=== PATIENT | male | born 1975 ===

== ENCOUNTER 2020-11-30 14:28 | Outpatient (REF) | payer OTHER, SELFPAY ==
[2020-11-30 15:56] LABS: MANUAL DIFF FLAG NO
[2020-11-30 15:59] LABS: Basophils Percent Auto 0.6 % (0-2); Eosinophils Percent Auto 0.8 % (0-4); Hematocrit 41.8 % (42-52); Hemoglobin 13.9 g/dl (14.0-18.0); Imm Gran Abs Auto 0.01 X10*3/uL (0.00-0.03); Imm Gran Pct Auto 0.2 % (0.0-0.4); Lymphocytes Absolute Auto 1.8 X10*3/uL (1.2-4.9); Lymphocytes Percent Auto 36.1 % (20-40); Mean Corpuscular HGB Conc 33.3 g/dl (31.0-36.0); Mean Corpuscular Hemoglobin 30.3 pg (27.0-33.0); Mean Corpuscular Volume 91.1 fL (80-98); Mean Platelet Volume 9.8 fL (9.4-12.4); Monocytes Absolute Auto 0.2 X10*3/uL (0.1-1.2); Monocytes Percent Auto 4.7 % (2-11); Neutrophils Absolute Auto 2.9 X10*3/uL (2.0-8.3); Neutrophils Percent Auto 57.6 % (45-73); Platelet Count 229 X10*3/uL (160-400); Red Blood Count 4.59 X10*6/uL (4.60-5.80); Red Cell Distribution Width 12.4 % (11.0-16.0); White Blood Count 5.1 X10*3/uL (4.8-10.8)
[2020-11-30 16:24] LABS: Alanine Aminotransferase 88 U/L (0-40); Albumin Level 4.3 g/dL (3.5-5.0); Alkaline Phosphatase 107 U/L (39-117); Aspartate Amino Transferase 66 U/L (5-37); Bilirubin Direct 0.2 mg/dL (0.0-0.5); Bilirubin Total 0.5 mg/dL (0.0-1.0); Blood Urea Nitrogen 16 mg/dL (9-16); Estimated Glomerular Filt Rate > 60; Total Protein 7.4 g/dL (6.5-8.0)
[2020-12-01 09:41] LABS: Hepatitis A Antibody IgG REACTIVE (Nonreactive); ~Hepatitis A Antibody IgG 14.66 S/CO (0.00-0.99)
[2020-12-01 11:57] LABS: Alpha Fetoprotein 3.9 ng/mL (<6.1)
[2020-12-01 13:32] LABS: HCV RNA PCR Qn 6.49 Log IU/mL (NOT DETECTED)
[2020-12-04 15:47] LABS: FIB-ALT 78 U/L (9-46); FIB-Alpha-2-Macroglobulin 260 mg/dL (106-279); FIB-Apolipoprotein A1 110 mg/dL (94-176); FIB-GGT 65 U/L (3-95); FIB-Haptoglobin 79 mg/dL (43-212); FIB-Total Bilirubin 0.5 mg/dL (0.2-1.2); Liver Fibrosis Score 0.56; Liver Fibrosis Stage F2; Nec Inflam Act Grade A2; Nec Inflam Act Score 0.56
[2020-12-04 19:41] LABS: HCV Genotype LiPA 1a
== END 2020-11-30 14:29 | disposition home or self-care (01) ==
LOC: HO.LAB 14:28
PROVIDERS: PCP Internal Medicine; Visit Provider Internal Medicine
DX: B18.2 Chronic viral hepatitis C (principal); R94.5 Abnormal results of liver function studies
CPT/HCPCS: 36415; 80076; 81596; 82105; 82565; 84520; 85025; 85610; 86708; 87902

== ENCOUNTER 2021-02-16 14:53 | Outpatient (REF) | payer OTHER, SELFPAY ==
[2021-02-16 15:58] LABS: MANUAL DIFF FLAG NO
[2021-02-16 16:04] LABS: Basophils Percent Auto 0.5 % (0-2); Eosinophils Absolute Auto 0.1 X10*3/uL (0.0-0.4); Eosinophils Percent Auto 2.2 % (0-4); Hematocrit 41.7 % (42-52); Hemoglobin 13.9 g/dl (14.0-18.0); Imm Gran Abs Auto 0.02 X10*3/uL (0.00-0.03); Imm Gran Pct Auto 0.4 % (0.0-0.4); Lymphocytes Absolute Auto 2.2 X10*3/uL (1.2-4.9); Lymphocytes Percent Auto 39.6 % (20-40); Mean Corpuscular HGB Conc 33.3 g/dl (31.0-36.0); Mean Corpuscular Hemoglobin 30.5 pg (27.0-33.0); Mean Corpuscular Volume 91.4 fL (80-98); Mean Platelet Volume 9.5 fL (9.4-12.4); Monocytes Absolute Auto 0.3 X10*3/uL (0.1-1.2); Monocytes Percent Auto 6.2 % (2-11); Neutrophils Absolute Auto 2.8 X10*3/uL (2.0-8.3); Neutrophils Percent Auto 51.1 % (45-73); Platelet Count 236 X10*3/uL (160-400); Red Blood Count 4.56 X10*6/uL (4.60-5.80); Red Cell Distribution Width 12.6 % (11.0-16.0); White Blood Count 5.5 X10*3/uL (4.8-10.8)
[2021-02-16 16:34] LABS: Alanine Aminotransferase 65 U/L (0-40); Albumin Level 4.3 g/dL (3.5-5.0); Alkaline Phosphatase 105 U/L (39-117); Aspartate Amino Transferase 48 U/L (5-37); Bilirubin Direct 0.2 mg/dL (0.0-0.5); Bilirubin Total 0.6 mg/dL (0.0-1.0); Blood Urea Nitrogen 13 mg/dL (9-16); Estimated Glomerular Filt Rate > 60; Total Protein 7.2 g/dL (6.5-8.0)
[2021-02-18 12:46] LABS: HCV Log PCR 6.26 Log IU/mL (NOT DETECTED); HepC Viral Load 1820000 IU/mL (NOT DETECTED)
== END 2021-02-16 14:54 | disposition home or self-care (01) ==
LOC: HO.LAB 14:53
PROVIDERS: PCP Internal Medicine; Visit Provider Internal Medicine
DX: B18.2 Chronic viral hepatitis C (principal); R79.89 Other specified abnormal findings of blood chemistry
CPT/HCPCS: 36415; 80076; 82565; 84520; 85025; 87522

== ENCOUNTER 2021-12-08 08:05 | Outpatient (REF) | payer OTHER, SELFPAY ==
--- NOTE | ~2021-12-08 | US_ITS ---
EXAMINATION: US ABDOMEN COMPLETE CLINICAL INFORMATION: Chronic hepatitis C. COMPARISON: Ultrasound abdomen with elastography 03/17/2020. TECHNIQUE: Real-time imaging of the abdominal viscera. FINDINGS: PANCREAS: Visualized portions of pancreas are normal in appearance. ABDOMINAL AORTA: The proximal, mid, and distal segments are normal in caliber. INFERIOR VENA CAVA: Visualized portions are normal. LIVER: The liver is normal in size. The liver contour is normal. Liver echogenicity is within normal limits. No focal hepatic lesion. There is no intrahepatic biliary duct dilatation seen. GALLBLADDER: Normal. The gallbladder is physiologically distended without evidence of stones, sludge, polyps, wall thickening or pericholecystic fluid. COMMON BILE DUCT: Normal in caliber measuring 0.7 cm in diameter. RIGHT KIDNEY: Normal. No hydronephrosis. No renal calculi or focal parenchymal lesions. The kidney measures 10.6 cm in maximum dimension. LEFT KIDNEY: Normal. No hydronephrosis. No renal calculi or focal parenchymal lesions. The kidney measures 12.3 cm in maximum dimension. SPLEEN: Normal. The spleen measures 11.3 cm in maximum dimension. FREE FLUID: None. US/US abdomen complete IMPRESSION: Unremarkable sonographic imaging of the abdomen.
== END 2021-12-08 08:06 | disposition home or self-care (01) ==
LOC: HO.US 08:05
PROVIDERS: PCP Internal Medicine; Visit Provider Internal Medicine
DX: B18.2 Chronic viral hepatitis C (principal)
CPT/HCPCS: 76700

== ENCOUNTER 2024-02-29 10:20 | Inpatient (IN) | payer OTHER, SELFPAY ==
--- NOTE | ~2024-02-29 | XR_ITS ---
EXAMINATION: XR ELBOW, LEFT CLINICAL INFORMATION: Pain. Concern for osteomyelitis along the medial aspect. COMPARISON: None available. TECHNIQUE: AP, lateral, and oblique views of the left elbow. FINDINGS: Soft tissues are swollen at the elbow with associated subcutaneous edema. IV catheter is present in the antecubital fossa. No fracture or malalignment. Bone mineralization is normal. Joint spaces are well-preserved. No joint effusion. XR/XR elbow LT min 3V IMPRESSION: Soft tissue swelling and subcutaneous edema at the left elbow. No acute osseous findings.
[2024-02-29 11:00] VITALS: BP 121/70; PULSE 103; RESP 16; TEMP 36.9; O2SAT 98; BMI 27.1
--- OUTSIDE RECORDS SUMMARY | 2024-02-29 11:21 | XMS_ITS | Patient Health Record ---
Author Organization [facility] Address [address] [place] [id number] Care Team Providers Care Biodiesel Processing Technician Name Role Phone Alexander Deleon MD Primary Care Provider Jonathana Lino Boggs Unavailable [phone] REASON FOR REFERRAL No Information MEDICATIONS Medication SIG (Take, Route, Fr equency, Duration) Notes Start Date End Date Status Methadone HCl 10 MG/5ML Orally Once a day Active Harvoni 90-400 MG 1 tablet Orally Once a day for 90 days 2021 Active IMMUNIZATIONS Vaccine Route Administration Date Status Comme nts Influenza Unknown 03/11/2020 Refused Influenza Unknown 02/16/2021 Refused SOCIAL HISTORY Tobacco Use: Social History Observation Description Date Details (start date - stop date) Current Smoker NA - NA Sex Assigned At : Social History Observation Description Sex Assigned At Unknown Tobacco Use/Smoking Question Answer Notes Patient is a current smoker How often do you smoke cigarettes? every day How many cigarettes a day do you smoke? 5 or les s How soon after you wake up d o you smoke your first cigarette? after 60 minutes Are you interested in quitting? Thinking about q uitting Alcohol Screen Question Answer Notes Did you have a drink containing alcohol in the p ast year? No Points 0 Interpretation Negative PROBLEMS Problem Type ICD Code Onset Dates Problem Status W/U Status Risk SNOMED Code Notes Problem Chronic hepatitis C without hepatic coma (B18.2) Active confirmed 977071654 Problem Elevated liver function tests (R79.89) Active confirmed 364861806 Problem Chronic hepatitis C (B18.2) Active confirmed Chronic hepatitis C (309231999) PLAN OF TREATMENT Pending Test Test Name Order Date BUN 11/30/2020 BUN 03/11/2020 BUN 02/16/2021 CREATININE 11/30/2020 CREATININE 03/11/2020 CREATININE 02/16/2021 LIVER PROFILE 11/18/2021 LIVER PROFILE 02/16/2021 LIVER PROFILE 03/15/2022 LIVER PROFILE 11/30/2020 LIVER PROFILE 02/16/2021 LIVER PROFILE 03/11/2020 CBC w DIFF 11/18/2021 CBC w DIFF 02/16/2021 CBC w DIFF 03/15/2022 CBC w DIFF 11/30/2020 CBC w DIFF 02/16/2021 CBC w DIFF 03/11/2020 PROTHROMBIN TIME (PT, INR) 11/18/2021 PROTHROMBIN TIME (PT, INR) 11/30/2020 PROTHROMBIN TIME (PT, INR) 03/11/2020 ALPHA-FETOPROTEIN,TUMOR MARKER 1 ALPHA-FETOPROTEIN,TUMOR MARKER 0 ALPHA-FETOPROTEIN,TUMOR MARKER 2 HEPATITIS C VIRAL LOAD 03/15/2022 HEPATITIS C VIRAL LOAD 11/18/2021 HEPATITIS C VIRAL LOAD 02/16/2021 US ABD 11/18/2021 US ABD 03/11/2020 HEPATITIS A ANTIBODY-IGG 11/30/2020 HEPATITIS A ANTIBODY-IGG 03/11/2020 HCV LIVER FIBROSIS, FIBRO TEST 1 HCV LIVER FIBROSIS, FIBRO TEST 0 HCVVL REFLEX GENOTYPE REFLEX NS5A 2020 HCVVL REFLEX GENOTYPE REFLEX NS5A 2019 US abdomen complete 12/08/2021 Insurance Providers Payer Name Payer Address Payer Phone Subscriber Number Group Number Insured Name Patient Relationship to Insured Coverage Start Date Coverage End Date [facility] [address] [address] [place], [place] [id number] PEPPER DURON Self - patient is the insured MEDICAID OF [facility] [address] [place] [address] [phone] [id number] MATEO Dean PEPPER Self - patient is the insured MEDICAL (GENERAL) HISTORY Medical History History ICD Code Denies MD,DM,CVA,Lung disease,renal dise ase HEP C-treated while he was i n group home in 2009 with just pegylated IF--he had a liver biopsy -he describes a cure . Relapsed with IVDA and tested + again in 2015. His hepatitis C viral load was 361,000 in October 2019. In 2016 he had a negative HIV test and positive hepatitis B surface antibody. His HIV test was negative again in October 2019. Genotype is 1A. He is Hep A IgG +. Surgical History Surgery Date(Month/Year) Right knee surgery Appendectomy 1999
--- NOTE | 2024-02-29 11:26 | ED.GENADULT ---
HPI - General Adult General Chief complaint: Wound/Laceration Stated complaint: rash on arms Time Seen by Provider: 02/29/24 11:23 Source: patient Mode of arrival: ambulatory Limitations: no limitations History of Present Illness HPI narrative: Patient is a 49 year old assigned male at with a history of IV drug use presenting to the emergency department today with xylazine wounds. Patient states that he recently got out of rehab and has since noticed that his xylazine wounds are getting worse and possibly infected. Patient states that last heroin use was yesterday, snorting. Patient denies any dizziness, lightheadedness, abdominal pain, nausea, vomiting, fever, chills, blurry vision, double vision, loss of vision, chest pain, difficulty breathing, shortness of breath, back pain, night sweats, pain with urination, increased urinary frequency, increased urinary urgency, blood in his urine or stool, syncope or a near syncopal episode, recent trauma or falls, bowel incontinence, bladder incontinence, bowel retention, bladder retention, or any other complaints at this time. Onset (ago): day(s) Location: left, right and upper extremity Relieving factors: none Exacerbating factors: none Associated symptoms: denies other symptoms Treatments prior to arrival: none Related Data Allergies Allergy/AdvReac Type Severity Reaction Status Date / Time No Known Allergies Allergy Verified 02/29/24 11:02 [No Known Allergies*] Review of Systems Constitutional: Constitutional: Reports no additional constitutional complaints, Denies chills, Denies fever(s) and Denies night sweats Eyes: Eyes: Reports no additional eye complaints, Denies blurry vision, Denies change in vision, Denies diplopia, Denies eye discharge, Denies loss of vision and Denies eye pain ENT: Denies dizziness Cardiovascular: Cardiovascular: Reports no additional cardiovascular complaints, Denies chest pain, Denies lightheadedness, Denies Loss of Consciousness and Denies dyspnea Respiratory: Respiratory: Reports no additional respiratory complaints and Denies dyspnea Gastrointestinal: Gastrointestinal: Reports no additional gastrointestinal complaints, Denies abdominal pain, Denies melena, Denies hematochezia, Denies change in bowel habits and Denies change in stool character Genitourinary: Genitourinary: Reports no additional male genitourinary complaints, Denies hematuria, Denies oliguria, Denies difficulty urinating, Denies dysuria, Denies urinary frequency, Denies urinary hesitancy, Denies urinary incontinence and Denies urinary urgency Musculoskeletal: Musculoskeletal: Reports no additional musculoskeletal complaints, Denies numbness and Denies tingling Integumentary/Breasts: Comments: bilateral arm wounds Neurologic: Denies dizziness, Denies loss of vision, Denies numbness and Denies tingling Psychiatric: Psychiatric: Reports no additional psychiatric complaints Endocrine: Endocrine: Reports no additional endocrine complaints Hematologic/Lymphatic: Hematologic/Lymphatic: Reports no additional hematologic/lymphatic complaints Allergic/Immunologic: Allergic/Immunologic: Reports no additional allergic/immunologic complaints [facility] Past Medical History Attestation statement: The following information was validated with the patient. Source: old records reviewed and nursing notes reviewed Medical History IVDU (intravenous drug user) Opioid use disorder Hepatitis C Social History Social History Smoked in Last 30 Days: No Use of substances other than those prescribed or required for medical reasons: Yes Substance Use Type: Heroin Last Used Substance: Days (ago) Any prior treatment program specific to substance use: Yes Advance Directives: No Advance Directives Information Provided: No Physical Exam ED Vital Signs: Vital Signs - 24 hr 02/29/24 11:00 02/29/24 13:02 02/29/24 13:59 Temperature 98.4 F 97.9 F Pulse Rate 103 H 76 62 Respiratory Rate 16 16 12 Blood Pressure 121/70 109/60 95/59 L Pulse Oximetry 98 97 98 Oxygen Delivery Method Room Air Room Air Room Air BMI result Body Mass Index 27.1 Const General: cooperative, no acute distress, alert and awake Nutritional Appearance: well nourished Orientation/consciousness: patient oriented x3 Limitations: no limitations HENMT Head: Yes normal to inspection and Yes atraumatic Ears: hearing grossly normal bilaterally and external ears normal General nose exam: Normal external nose present, no nasal discharge noted and no epistaxis Face and sinus: Yes normal facial exam, No abrasion and No laceration Mouth: Normal oral and palatal mucosa present, no drooling and no muffled voice Eyes General: appearance normal, both eyes and all related structures Periorbital: periorbital findings normal Eyelids: Yes eyelids normal Conjunctivae: conjunctivae normal Pupils: Equal, round and reactive pupils present EOM: EOMs intact bilaterally Neck Neck: Yes normal visual inspection, Yes full ROM and Yes no lymphadenopathy Chest Chest palpation & inspection: normal inspection of the chest Resp Effort & Inspection: normal respiratory effort and able to speak in complete sentences GI Inspection: Yes normal to inspection Neuro General: patient oriented x3 and moves all extremities Cranial nerves: Yes Equal, round and reactive pupils present Cognition (Neuro): normal cognition Motor exam (neuro): 5/5 motor strength present throughout Sensory Exam: Normal double simultaneous stimulation for sensation Coordination: [id number] test normal Extrem Other: General: Yes full ROM and Yes capillary refill normal Psych Appearance: grossly normal Mental Status: mental status grossly normal Affect: normal affect Attitude: cooperative Thought process: Normal thought process present Thought content: Normal thought content present Insight: Good insight present (Psych) Medications Administered Generic Name Dose Route Start Last Admin Trade Name Freq PRN Reason Stop Dose Admin Enoxaparin Sodium 40 mg 02/29/24 15:15 02/29/24 17:16 Enoxaparin Sodium 40 Mg/0.4 Ml Syringe SUBCUT Not Given Q24H FAVIO Lactated Ringer's 1,000 mls @ 100 mls/hr 02/29/24 20:00 02/29/24 19:59 Lr IVCONT 03/01/24 05:59 100 mls/hr .Q10H FAVIO Administration Sodium Chloride 3 ml 02/29/24 16:00 02/29/24 17:10 0.9 % Sodium Chloride Flush 3 Ml Syringe IVFLUSH 3 ml QSHIFT FAVIO Administration Discontinued Medications Generic Name Dose Route Start Last Admin Trade Name Freq PRN Reason Stop Dose Admin Piperacillin Sod/Tazobactam 100 mls @ 200 mls/hr 02/29/24 11:26 02/29/24 13:32 Sod 4.5 gm/ Sodium Chloride IV 02/29/24 11:55 Infused ONCE ONE Infusion Vancomycin HCl 2,000 mg in 500 mls @ 250 mls/hr 02/29/24 11:45 02/29/24 16:25 Vancomycin/Ns IV 02/29/24 13:44 Infused ONCE ONE Infusion Sodium Chloride 1,000 mls @ 999 mls/hr 02/29/24 14:15 02/29/24 15:15 Ns IV 02/29/24 15:15 Infused .Q1H1M FAVIO Infusion Methadone HCl 30 mg 02/29/24 14:59 02/29/24 17:10 Methadone Hcl 20 Mg/2 Ml Oral.Conc PO 02/29/24 15:00 Not Given ONCE ONE Medical Decision Making Medical Decision Making [facility] Narrative: Patient is a 49 year old assigned male at with a history of IV drug use presenting to the emergency department today with bilateral upper extremity Xalyzine wounds. Patient's physical exam was as noted in the physical exam portion of this note. Patient's blood work showed an initially elevated lactic acid of 2.1 and CRP of 1.32. Rest of the patient's labs were unremarkable. Patient's left elbow x-ray showed no evidence of osteo. Patient's clinical presentation is not consistent with sepsis (@1314). I spoke to the hospitalist team who agreed to admission. Patient was given IV Zosyn and vancomycin. I explained my physical exam findings as well as all test results to the patient. I answered all questions asked by the patient. Patient verbalized agreement and understanding with this treatment plan and admission. Differential Diagnosis Differential Diagnoses: The differential diagnosis associated with the presentation includes Cellultis IV drug use Admission/Observation Consideration of admission/observation: Escalation of care including admission/observation considered Patient admitted. Consult Healthcare Provider Management of the patient was discussed with: Hospitalist (agreed to admission) Lab Data [facility] Lab Attestation statement: I reviewed the patient's lab results. My interpretation of these results are in the MDM Rationale portion of this note. 02/29/24 11:56 02/29/24 11:56 Labs: Lab Results 02/29/24 Range/Units 11:56 WBC 8.1 (4.8-10.8) X10*3/uL RBC 4.50 L (4.60-5.80) X10*6/uL Hgb 11.7 L (14.0-18.0) g/dl Hct 37.0 L (42.0-52.0) % MCV 82.2 (80.0-98.0) fL MCH 26.0 L (27.0-33.0) pg MCHC 31.6 (31.0-36.0) g/dl RDW 14.6 (11.0-16.0) % Plt Count 283 (160-400) X10*3/uL MPV 9.3 L (9.4-12.4) fL Immature Gran % (Auto) 0.2 (0.0-0.4) % Neut % (Auto) 72.1 (45-73) % Lymph % (Auto) 21.9 (20-40) % [place] % (Auto) 5.2 (2-11) % Eos % (Auto) 0.2 (0-4) % Baso % (Auto) 0.4 (0-2) % Lymph # (Auto) 1.8 (1.2-4.9) X10*3/uL [place] # (Auto) 0.4 (0.1-1.2) X10*3/uL Eos # (Auto) 0.0 (0.0-0.4) X10*3/uL Baso # (Auto) 0.0 (0.0-0.2) X10*3/uL Abs Immat Gran (auto) 0.02 (0.00-0.03) X10*3/uL Absolute Neuts (auto) 5.8 (2.0-8.3) x10*3/uL Absolute Nucleated RBC 0.000 (0.0-0.012) X10*3/uL Nucleated RBC % (auto) 0.0 (0.0-0.2) /100WBC ESR 14 (0-15) MM/HR Sodium 137 (135-145) mmol/L Potassium 3.5 (3.3-5.1) mmol/L Chloride 105 (96-108) mmol/L Carbon Dioxide 22 (22-29) mmol/L Anion Gap 14 (12-20) BUN 17 H (9-16) mg/dL Creatinine 0.79 (0.5-1.4) mg/dL Estim Creat Clear Calc 99.8 Estimated GFR > 60 Random Glucose 100 (60-115) mg/dL Lactic Acid 2.1 H* (0.5-2.0) mmol/L Calcium 8.9 (8.4-10.2) mg/dL Total Bilirubin 0.5 (0.0-1.0) mg/dL AST 57 H (5-37) U/L ALT 61 H (0-40) U/L Alkaline Phosphatase 108 (39-117) U/L C-Reactive Protein 1.32 H (< or = 0.50) mg/dL Total Protein 8.0 (6.5-8.0) g/dL Albumin 4.0 (3.5-5.0) g/dL Independent Interpretation I performed an independent interpretation of an: Plain X-Ray Interpretation: My interpretation is in agreement with the radiologist's impression of this imaging study. EXAMINATION: XR ELBOW, LEFT CLINICAL INFORMATION: Pain. Concern for osteomyelitis along the medial aspect. COMPARISON: None available. TECHNIQUE: AP, lateral, and oblique views of the left elbow. FINDINGS: Soft tissues are swollen at the elbow with associated subcutaneous edema. IV catheter is present in the antecubital fossa. No fracture or malalignment. Bone mineralization is normal. Joint spaces are well-preserved. No joint effusion. XR/XR elbow LT min 3V IMPRESSION: Soft tissue swelling and subcutaneous edema at the left elbow. No acute osseous findings. Dictated By: Des De Los Santos MD Signed By: Electronically signed by Des De Los Santos MD 02/29/24 2282 Radiology Impression Discussion of test interpretation with radiology: I have reviewed the radiologist's reading. Critical Care Time Critical Care Time Critical Care Time: Yes Total Critical Care Time: 132 Attestation: I spent 132 minutes of Critical Care Time with this patient. This does not include time spent on separately reported billable procedures. Discharge Plan Discharge Clinical Impression: Cellulitis of upper extremity Patient Disposition: Admitted As Inpatient
[2024-02-29 12:02] LABS: MANUAL DIFF FLAG NO
[2024-02-29 12:03] LABS: Basophils Percent Auto 0.4 % (0-2); Eosinophils Percent Auto 0.2 % (0-4); Hemoglobin 11.7 g/dl (14.0-18.0); Imm Gran Abs Auto 0.02 X10*3/uL (0.00-0.03); Imm Gran Pct Auto 0.2 % (0.0-0.4); Lymphocytes Absolute Auto 1.8 X10*3/uL (1.2-4.9); Lymphocytes Percent Auto 21.9 % (20-40); Mean Corpuscular HGB Conc 31.6 g/dl (31.0-36.0); Mean Corpuscular Volume 82.2 fL (80.0-98.0); Mean Platelet Volume 9.3 fL (9.4-12.4); Monocytes Absolute Auto 0.4 X10*3/uL (0.1-1.2); Monocytes Percent Auto 5.2 % (2-11); Neutrophils Absolute Auto 5.8 x10*3/uL (2.0-8.3); Neutrophils Percent Auto 72.1 % (45-73); Platelet Count 283 X10*3/uL (160-400); Red Cell Distribution Width 14.6 % (11.0-16.0); White Blood Count 8.1 X10*3/uL (4.8-10.8)
[2024-02-29 12:22] LABS: Alanine Aminotransferase 61 U/L (0-40); Alkaline Phosphatase 108 U/L (39-117); Anion Gap 14 (12-20); Aspartate Amino Transferase 57 U/L (5-37); Bilirubin Total 0.5 mg/dL (0.0-1.0); Blood Urea Nitrogen 17 mg/dL (9-16); C Reactive Protein 1.32 mg/dL (< or = 0.50); Calcium 8.9 mg/dL (8.4-10.2); Carbon Dioxide 22 mmol/L (22-29); Chloride 105 mmol/L (96-108); Creatinine Clr Calc Pharmacy 99.8; Estimated Glomerular Filt Rate > 60; Glucose Random 100 mg/dL (60-115); Potassium 3.5 mmol/L (3.3-5.1); Sodium 137 mmol/L (135-145)
[2024-02-29 12:25] LABS: Lactic Acid 2.1 mmol/L (0.5-2.0)
[2024-02-29 12:42] LABS: Erythrocyte Sedimentation Rate 14 MM/HR (0-15)
[2024-02-29 13:02] VITALS: BP 109/60; PULSE 76; RESP 16; TEMP 36.6; O2SAT 97
[2024-02-29] MEDS: Piperacillin Sodium/Tazobactam 4.5 GM in 0.9 % Sodium Chloride 100 ML IV (13:02)
--- NOTE | 2024-02-29 13:38 | PHA.MEDREC ---
Pharmacy Consult ? Medication Reconciliation Pharmacy has completed the medication reconciliation. Spoke with patient, confirmed he is not on any medications.
[2024-02-29] MEDS: vancomycin/NS 2,000 MG/500 ML PLAST..BAG 250 MG IV (13:55)
[2024-02-29 13:59] VITALS: BP 95/59; PULSE 62; RESP 12; O2SAT 98
[2024-02-29 14:00] LABS: Reflex Lactate? Lactic Acid Added
[2024-02-29] MEDS: 0.9 % Sodium Chloride 1,000 ML 999 ML IV (14:10)
--- NOTE | 2024-02-29 14:11 | PC.NURSE ---
security to bedside to check patients belongings w/ pt consent
--- NOTE | 2024-02-29 14:39 | PM.IMHP ---
History of Present Illness Date of Service: 02/29/24 Attending physician on admission: Logan Raphael Chief Complaint: Worsening arm wounds Pt is a 49-year-old male with a PMH significant for?IVDU and hepatitis-C who presents to the ED for evaluation of worsening bilateral upper extremity wounds. Pt patient has history of IVDU with heroin, last injected 9 days ago right before he went into detox for 6 days. Was discharged from detox 2 days ago. Denies recent IVDU, but admits to snorting what he believes was heroin earlier this morning. Reports upper extremity wounds have been around for a few weeks, likely secondary to xylazine. Initially started out as blisters that popped and expressed clear, watery discharge. Does reports some foul-smelling and yellowish discharge approximately 1 week ago. While in detox patient has been picking at in itching scabs. Patient staying with sister who noticed wounds on his arms and had him come to the ED for further evaluation. Denies any other acute symptoms. No fever, chills, nausea, vomiting, abdominal pain. Denies any significant upper extremity pain. No chest pain/pressure, palpitations. Shortness of breath. Denies any lesions elsewhere on his body. Reports injecting into his hands bilaterally. Also states he has been on methadone in the past, but that was some time ago and does not know the dosage. Initially contracted hep C in 2006 and was treated, though be contracted hep C more recently and has not yet sought outpatient treatment. In the ED pt was tachycardia of 103, and soft BP as low as 95/59. Vitals otherwise WNL. Labs were significant for H&H 11.7/37.0, lactic acid 2.1, AST 57, ALT 61, and C-reactive protein 1.32. No significant electrolyte abnormalities. No leukocytosis. ESR WNL. X-ray of left elbow found soft tissue swelling and subcutaneous edema with no acute osseous findings. Pt was treated with IVF, vanc, and Zosyn. Pt will be admitted to the hospital for treatment and further evaluation of upper left extremity cellulitis. Review of Systems Review of Systems: Worsening upper extremity wounds bilaterally Pruritus Previous foul-smelling and purulent discharge Denies fever, chills, nausea, vomiting, abdominal pain No shortness a breath Denies chest pain/pressure, palpitations [facility] Medical History (Updated 02/29/24 @ 15:25 by RONEY Boyle) IVDU (intravenous drug user) Opioid use disorder Hepatitis C Social History Smoked in Last 30 Days: No Use of substances other than those prescribed or required for medical reasons: Yes Substance Use Type: Heroin Last Used Substance: Days (ago) Any prior treatment program specific to substance use: Yes Advance Directives: No Advance Directives Information Provided: No Meds Allergies Allergy/AdvReac Type Severity Reaction Status Date / Time No Known Allergies Allergy Verified 02/29/24 11:02 [No Known Allergies*] Active Medications: Current Medications Sodium Chloride (Ns) 1,000 mls @ 999 mls/hr IV .Q1H1M FAVIO Stop: 02/29/24 15:15 Last Admin: 02/29/24 14:10 Dose: 999 mls/hr Physical Exam Vital Signs and Narrative: Vital Signs: Last Vital Signs Temp 97.9 F 02/29/24 13:02 Pulse 62 02/29/24 13:59 Resp 12 02/29/24 13:59 BP 95/59 L 02/29/24 13:59 Pulse Ox 98 02/29/24 13:59 O2 Del Method Room Air 02/29/24 13:59 BMI result Body Mass Index 27.1 General: AOx3, restless, no acute distress Resp: CTA bilaterally CVS: S1, S2, RRR GI: +BS, NT, no distention Skin: Warm, dry Neuro: Cranial nerves II-XII grossly intact bilaterally. Motor grossly intact bilaterally Extremities: No edema. Multiple ulcerations in various stations of healing with surrounding warmth and erythema on upper extremities bilaterally. No discharge noted. As pictured below Psych: Appropriate affect Results Labs 02/29/24 11:56 02/29/24 11:56 Labs: Laboratory Results - last 24 hr 02/29/24 11:56 MCV 82.2 MCH 26.0 L MCHC 31.6 RDW 14.6 Plt Count 283 MPV 9.3 L Immature Gran % (Auto) 0.2 Neut % (Auto) 72.1 Lymph % (Auto) 21.9 [place] % (Auto) 5.2 Eos % (Auto) 0.2 Baso % (Auto) 0.4 Lymph # (Auto) 1.8 [place] # (Auto) 0.4 Eos # (Auto) 0.0 Baso # (Auto) 0.0 Abs Immat Gran (auto) 0.02 Absolute Neuts (auto) 5.8 Absolute Nucleated RBC 0.000 Nucleated RBC % (auto) 0.0 ESR 14 Anion Gap 14 Estim Creat Clear Calc 99.8 Estimated GFR > 60 Random Glucose 100 Lactic Acid 2.1 H* Calcium 8.9 Total Bilirubin 0.5 AST 57 H ALT 61 H Alkaline Phosphatase 108 C-Reactive Protein 1.32 H Total Protein 8.0 Albumin 4.0 Imaging Radiologist's Impressions: Impressions Elbow X-Ray 02/29/24 12:54 IMPRESSION: Soft tissue swelling and subcutaneous edema at the left elbow. No acute osseous findings. Assessment and Plan (1) Cellulitis of upper extremity: Status: Acute Plan Pt is a 49-year-old male with a PMH significant for?IVDU and hepatitis-C who presents to the ED for evaluation of worsening bilateral upper extremity wounds. Pt will be admitted to the hospital for treatment and further evaluation of upper left extremity cellulitis. Upper extremity cellulitis with ulceration bilaterally Likely secondary to IVDU with xyalazine Patient does not meet sepsis criteria: Tachycardia, but no tachypnea, fever, or leukocytosis; lactic acid WNL Patient received IVF and started on broad-spectrum antibiotics in the ED Will treat with vancomycin and Zosyn, started 02/29/2024 ID consult General surgery consult for possible debridement Opioid use disorder with IVDU Got out of rehab 2 days ago after a 6 day detox stay Last injected 8-9 days ago, last snorted this morning Will give methadone 30mg x1 dose Addiction medicine consult Hepatitis C Reports initially treated successfully in 2006 Has not sought treatment after reinfection Follow-up outpatient for treatment Full Code Attending:?Dr. Raphael DVT Prophylaxis: Lovenox Pt will require a hospitalization of at least two nights for treatment of?worsening bilateral upper extremity cellulitis and ulcerations. Patient will require hospitalization for administration of IV antibiotics and specialist consultation with both Infectious Disease and general surgery for possible debridement. Quality Stroke Does the patient have a stroke diagnosis?: No VTE Prior VTE?: No VTE Risk Level:: Medical - moderate - high VTE Device Contraindication: Treatment Not Indicated VTE Drug Contraindication: N/A - Med Ordered
--- NOTE | 2024-02-29 15:27 | PHA.PROG ---
Admission Date/Time: Indication: skin and skin structure Weight in k.1 kg Adjusted body weight in Kg: [place] body weight in Kg: Obesity Dosing Indication % IBW: BMI 27.1 Serum Creatinine - Last 168 Hours 02/29/24 11:56 Creatinine 0.79 Estimated CrCl and GFR - Last 168 Hours 02/29/24 11:56 Estim Creat Clear Calc 99.8 Estimated GFR > 60 Vancomycin Loading Dose: 2000 X1 Current Vancomycin Dosing Regimen: 750 mg Q8H Vancomycin Monitoring using AUC goal of 400 - 600 range with trough as surrogate marker: 499 Date and Time for next Vancomycin Level to be drawn: 16.6 Pharmacist Comments on Vancomycin Plan: trough to be drawn 03/01 @1999 Vancomycin dosing will take advantage of [employer] as a clinical decision support tool that uses Bayesian modeling to calculate individual patient's pharmacokinetic parameters and forecast the patient's drug concentration time course with the target goal AUC 24 range of 400 - 600 mg/L/hr.
[2024-02-29 15:54] LABS: ~Lactic Acid-LAB USE ONLY 1.1 mmol/L (0.5-2.0)
--- NOTE | 2024-02-29 16:41 | P.CNID_ITS ---
History of Present Illness Data of Consult Service Date: 02/29/24 Requesting physician: Felecia Boswell Primary Care Provider: Unknown Physician HPI Reason for consult: cellulitis concern He presents with discomfort arms in antecubital area after injecting heroin. He has no fever or chills but feels left arm swelling and redness for last three days. He has Hepatitis C. Review of Systems 2 Review of Systems: Yes all other systems are reviewed and are negative PMFSH Past Medical History Medical History IVDU (intravenous drug user) Opioid use disorder Hepatitis C Family History Family history: reviewed and not pertinent Social History Social History Smoked in Last 30 Days: No Use of substances other than those prescribed or required for medical reasons: Yes Substance Use Type: Heroin Last Used Substance: Days (ago) Any prior treatment program specific to substance use: Yes Advance Directives: No Advance Directives Information Provided: No Meds Allergies Allergy/AdvReac Type Severity Reaction Status Date / Time No Known Allergies Allergy Verified 02/29/24 11:02 [No Known Allergies*] Active Medications: Current Medications Acetaminophen (Acetaminophen 325 Mg Tablet) 650 mg PO Q6H PRN PRN Reason: Pain, Mild (Pain Scale 1-3) Benzonatate (Benzonatate 100 Mg Capsule) 100 mg PO TID PRN PRN Reason: Cough Docusate Sodium (Docusate Sodium 100 Mg Capsule) 100 mg PO DAILY PRN PRN Reason: Constipation Enoxaparin Sodium (Enoxaparin Sodium 40 Mg/0.4 Ml Syringe) 40 mg SUBCUT Q24H [facility] Piperacillin Sod/Tazobactam (Sod 3.375 gm/ Sodium Chloride) 50 mls @ 100 mls/hr IV Q6H [facility] Vancomycin HCl 750 mg/ Sodium (Chloride) 265 mls @ 265 mls/hr IV Q8H [facility] Melatonin (Melatonin 3 Mg Tablet) 6 mg PO BEDTIME PRN PRN Reason: Insomnia Ondansetron HCl (Ondansetron Hcl 4 Mg/2 Ml Vial) 4 mg IVPUSH Q8H PRN PRN Reason: Nausea and Vomiting Pharmacy Consult (Consult Rx Vancomycin Dosing) 1 each MISCELLANE DAILY PRN PRN Reason: Consult order Sodium Chloride (0.9 % Sodium Chloride Flush 3 Ml Syringe) 3 ml IVFLUSH QSHIFT [facility] Physical Exam 2 Vital Signs: Vital Signs: Last Vital Signs Temp 97.9 F 02/29/24 13:02 Pulse 62 02/29/24 13:59 Resp 12 02/29/24 13:59 BP 95/59 L 02/29/24 13:59 Pulse Ox 98 02/29/24 13:59 O2 Del Method Room Air 02/29/24 13:59 BMI result Body Mass Index 27.1 Const: General: cooperative HEENT: Head: Yes normal to inspection Face and sinus: Yes normal facial exam Mouth: Normal oral and palatal mucosa present Teeth and gingiva: d entition normal Eyes: General: appearance normal, both eyes and all related structures P upils: Equal, round and reactive pupils present Resp: Effort & Inspection: normal respiratory effort Cardio: Rate: regular rate Rhythm: regular rhythm GI: Palpation (GI): Soft to palpation and nontender : General: Yes no CVA tenderness Back/Spine/Pelvis: Back: no CVA tenderness Skin: General skin exam: no rashes or lesions noted Neuro: General: moves all extremities Cranial nerves: Yes Equal, round and reactive pupils present Extrem: Other: scales over arms bilaterally ulcers redness left arm Psych: Appearance: grossly normal Results Labs 02/29/24 11:56 02/29/24 11:56 Labs: Short CBC 02/29/24 Range/Units 11:56 WBC 8.1 (4.8-10.8) X10*3/uL Hgb 11.7 L (14.0-18.0) g/dl Hct 37.0 L (42.0-52.0) % Plt Count 283 (160-400) X10*3/uL BMP 02/29/24 11:56 Sodium 137 Potassium 3.5 Chloride 105 Carbon Dioxide 22 BUN 17 H Creatinine 0.79 Calcium 8.9 Liver Function 02/29/24 Range/Units 11:56 Total Bilirubin 0.5 (0.0-1.0) mg/dL AST 57 H (5-37) U/L ALT 61 H (0-40) U/L Alkaline Phosphatase 108 (39-117) U/L Albumin 4.0 (3.5-5.0) g/dL Assessment and Plan (1) Cellulitis of upper extremity: Status: Acute He has smaller area cellulitis left antecubital. Most areas are Xylazine but there may be some small aresa cellulitis. Would continue Vancomycin only. Await blood cultures and change to po Doxycycline for a week if blood cultures negative. I did order HIV test (last done 2018) If blood cultures positive would check echo. Help with Addiction
[2024-02-29] MEDS: 0.9 % Sodium Chloride Flush 3 ML SYRINGE IVFLUSH ×2 (17:10→23:45)
[2024-02-29 17:11] VITALS: BP 100/55; PULSE 85; RESP 14; TEMP 36.6; O2SAT 97
--- NOTE | 2024-02-29 17:16 | PC.NURSE ---
patient refused lovenox injection. pt educated on lovenox and risks of refusal. hospitalist aware
--- NOTE | 2024-02-29 17:18 | PC.NURSE ---
Pt resting on stretcher sleeping, awakens to verbal stimuli and then falling asleep again while talking with this RN. Vitals stable although BP has been 90's-100's systolic, hospitalist aware
--- NOTE | 2024-02-29 17:34 | PHA.MEDREC ---
Pharmacy Consult ? Medication Reconciliation Pharmacy has completed the medication reconciliation, pt reported taking no medications at home.
--- NOTE | 2024-02-29 19:23 | PC.NURSE ---
I assumed care of the pt at 1900. Pt is asleep in bed at this time.
[2024-02-29] MEDS: Lactated Ringers 1,000 ML 100 ML IVCONT (19:59)
--- NOTE | 2024-02-29 20:05 | PC.NURSE ---
Pt woke up to verbal stilumi, fluids hung per MAR.
[2024-02-29 22:22] VITALS: BP 107/59; PULSE 74; RESP 17; TEMP 36.6; O2SAT 94
[2024-02-29] MEDS: vancomycin HCL 750 MG in 0.9 % Sodium Chloride 250 ML 265 MG IV (22:26)
[2024-02-29 22:32] VITALS: BMI 27.2
[2024-03-01 03:05] VITALS: BP 133/71; PULSE 55; RESP 16; TEMP 36.2; O2SAT 98
[2024-03-01 04:35] LABS: HIV AB/AG Nonreactive (Nonreactive); HIV Num 1 0.05 S/CO (0.00-0.99)
[2024-03-01] MEDS: vancomycin HCL 750 MG in 0.9 % Sodium Chloride 250 ML 265 MG IV (05:35)
[2024-03-01 06:27] LABS: Creatinine Clr Calc Pharmacy 127.1; Estimated Glomerular Filt Rate > 60
[2024-03-01 07:33] VITALS: BP 115/72; PULSE 61; RESP 16; TEMP 36.4; O2SAT 96
[2024-03-01] MEDS: 0.9 % Sodium Chloride Flush 3 ML SYRINGE IVFLUSH (08:30)
--- NOTE | 2024-03-01 09:00 | MHC.CM.PN ---
Addendum entered by Tereza Cristina RN 03/01/24 11:09: HCP COMPLETED, COPY UPLOADED TO [facility] AND PLACED IN PAPER CHART Original Note: EMR REVIEWED, PT ADMITTED W/BILAT UPPER EXTREMITY CELLULITIS, CM MET W/PT WHO REPORTS HE LIVES W/HIS SISTERM IS FULLY INDEP W/CARE, DENIES USE OF DME/SERVICES, PT'T GOAL FOR DC IS HOME HOWEVER IF BC'S POS PT WILL NEED STR, PT WILL ALSO NEED RECOVERY TEAM PRIOR TO DC D/T IVDU. PT VERIFIES PCP IS LISA ANDREA AND PT WOULD LIKE TO COMPLETE A HCP NAMING HIS SISTER NORMA PATEL [phone] HIS H[facility], CM WILL REVISIT W/PT.
--- NOTE | 2024-03-01 09:27 | P.CONGS_ITS ---
History of Present Illness Consult details Consult date: 03/01/24 Requesting physician: Felecia Boswell Narrative: 49-year-old male patient with a history of IV drug use presenting to the emergency department with bilateral lower extremity skin wounds. Patient apparently has been using xylazine mixed with heroin and at felt that his wounds were getting worse. He denies fever, chills, nausea or vomiting. He also denies current pain in his arms. He is admitted to the hospitalist service for further management of the extremity wounds. His last use of heroin was the day prior to admission. Review of Systems 2 Review of Systems: Yes all other systems are reviewed and are negative Constitutional: Constitutional: Denies chills, Denies fever(s), Denies headache(s), Denies poor appetite and Denies weakness ENT: Denies headache(s) Cardiovascular: Cardiovascular: Denies chest pain, Denies irregular heart rhythm, Denies palpitations and Denies dyspnea Respiratory: Respiratory: Denies cough, Denies excessive phlegm production and Denies dyspnea Gastrointestinal: Gastrointestinal: Denies abdominal pain, Denies bloating, Denies change in bowel habits, Denies constipation, Denies heartburn, Denies diarrhea, Denies nausea and Denies vomiting Genitourinary: Genitourinary: Denies difficulty urinating and Denies urinary frequency Musculoskeletal: Musculoskeletal: Denies back pain, Denies muscle weakness and Denies numbness Integumentary/Breasts: Skin/Breast: Reports as per HPI, Reports changing lesions and Reports non-healing lesions Neurologic: Denies headache(s), Denies numbness, Denies paresthesias and Denies weakness Psychiatric: Psychiatric: Denies anxiety and Denies depression Endocrine: Endocrine: Denies palpitations Hematologic/Lymphatic: Hematologic/Lymphatic: Denies lymphadenopathy [facility] Past Medical History Medical History IVDU (intravenous drug user) Opioid use disorder Hepatitis C Family History Family history: reviewed and not pertinent Social History Social History Household Members: Other Household Members Other:: 1 Housing: Apartment Do you presently have visiting nurse or other home services: No Patient Tobacco Use Status: Never used Tobacco e-Cigarette/Vaping Use: Never Used Second Hand Smoke Exposure: No Substance Use Type: Heroin service: No Meds Allergies Allergy/AdvReac Type Severity Reaction Status Date / Time No Known Allergies Allergy Verified 02/29/24 11:02 [No Known Allergies*] Active Medications: Current Medications Acetaminophen (Acetaminophen 325 Mg Tablet) 650 mg PO Q6H PRN PRN Reason: Pain, Mild (Pain Scale 1-3) Benzonatate (Benzonatate 100 Mg Capsule) 100 mg PO TID PRN PRN Reason: Cough Docusate Sodium (Docusate Sodium 100 Mg Capsule) 100 mg PO DAILY PRN PRN Reason: Constipation Enoxaparin Sodium (Enoxaparin Sodium 40 Mg/0.4 Ml Syringe) 40 mg SUBCUT Q24H [facility] Last Admin: 02/29/24 17:16 Dose: Not Given Vancomycin HCl 750 mg/ Sodium (Chloride) 265 mls @ 265 mls/hr IV Q8H [facility] Last Infusion: 03/01/24 06:39 Dose: Infused Melatonin (Melatonin 3 Mg Tablet) 6 mg PO BEDTIME PRN PRN Reason: Insomnia Ondansetron HCl (Ondansetron Hcl 4 Mg/2 Ml Vial) 4 mg IVPUSH Q8H PRN PRN Reason: Nausea and Vomiting Pharmacy Consult (Consult Rx Vancomycin Dosing) 1 each MISCELLANE DAILY PRN PRN Reason: Consult order Sodium Chloride (0.9 % Sodium Chloride Flush 3 Ml Syringe) 3 ml IVFLUSH QSHIFT [facility] Last Admin: 03/01/24 08:30 Dose: 3 ml Physical Exam 2 Vital Signs: Vital Signs: Last Vital Signs Temp 97.6 F 03/01/24 07:33 Pulse 61 03/01/24 07:33 Resp 16 03/01/24 07:33 BP 115/72 03/01/24 07:33 Pulse Ox 96 03/01/24 07:33 O2 Del Method Room Air 03/01/24 07:33 BMI result Body Mass Index 27.2 Const: General: cooperative and no acute distress Nutritional Appearance: w ell nourished Orientation/consciousness: patient oriented x3 Limitations: no limitations HEENT: Head: Yes normocephalic and Yes atraumatic Ears: hearing grossly normal bilaterally Neck: Neck: Yes normal visual inspection Resp: Effort & Inspection: normal respiratory effort, no audible wheezes, no cough and no respiratory distress Cardio: Jugular venous distension: no JVD GI: Inspection: Yes normal to inspection Skin: Other: Multiple areas of skin skin ulceration which are dry with minimal to no erythema surrounding. Wounds are mostly crusted with no evidence of underlying abscess. Findings are consistent with Xylazine wounds Neuro: General: patient oriented x3 Extrem: General: Yes no clubbing, cyanosis or edema Results Labs 02/29/24 11:56 03/01/24 05:40 Labs: Abnormal lab results 02/29/24 Range/Units 11:56 RBC 4.50 L (4.60-5.80) X10*6/uL Hgb 11.7 L (14.0-18.0) g/dl Hct 37.0 L (42.0-52.0) % MCH 26.0 L (27.0-33.0) pg MPV 9.3 L (9.4-12.4) fL BUN 17 H (9-16) mg/dL Lactic Acid 2.1 H* (0.5-2.0) mmol/L AST 57 H (5-37) U/L ALT 61 H (0-40) U/L C-Reactive Protein 1.32 H (< or = 0.50) mg/dL Short CBC 02/29/24 Range/Units 11:56 WBC 8.1 (4.8-10.8) X10*3/uL Hgb 11.7 L (14.0-18.0) g/dl Hct 37.0 L (42.0-52.0) % Plt Count 283 (160-400) X10*3/uL BMP 02/29/24 03/01/24 11:56 05:40 Sodium 137 Potassium 3.5 Chloride 105 Carbon Dioxide 22 BUN 17 H Creatinine 0.79 0.62 Calcium 8.9 Liver Function 02/29/24 Range/Units 11:56 Total Bilirubin 0.5 (0.0-1.0) mg/dL AST 57 H (5-37) U/L ALT 61 H (0-40) U/L Alkaline Phosphatase 108 (39-117) U/L Albumin 4.0 (3.5-5.0) g/dL All other labs normal. Assessment and Plan (1) Cellulitis of upper extremity: Qualifiers: Laterality: unspecified laterality Qualified Code(s): L03.119 - Cellulitis of unspecified part of limb Status: Acute Plan 49-year-old male patient with history of IV drug use with bilateral lower extremity skin ulceration consistent with Xylazine injection. No debridement required at this time. We will continue to monitor his wounds. Procedures Date of Service Date of Service: 03/01/24
[2024-03-01] MEDS: methADONE HCl 20 MG/2 ML ORAL.CONC 30 MG PO (09:33)
--- NOTE | 2024-03-01 09:51 | PM.DS ---
DS: Providers Provider Date of Service: 03/01/24 Date of admission: 02/29/24 15:05 Primary care physician: Unknown Physician Consults: 02/29/24 14:59 Addiction Medicine Routine Consulting Provider: Addiction Covering Reason for consultation: IVDU heroin 02/29/24 15:00 Consult to General Surgery Routine Consulting Provider: [facility] General Surgeons Reason for consultation: Cellulitis, xylazine wounds, ?debridement Consult to Infectious Diseases Routine Consulting Provider: [facility] Infectious Disease Reason for consultation: Cellulitis, xylazine wounds, hx of hep-c DS: Diagnosis Discharge Diagnosis (1) Cellulitis of upper extremity: Status: Acute DS: Summary Hospital Course Hospital Course: from initial hpi: 49-year-old male with a PMH significant for?IVDU and hepatitis-C who presents to the ED for evaluation of worsening bilateral upper extremity wounds. Pt patient has history of IVDU with heroin, last injected 9 days ago right before he went into detox for 6 days. Was discharged from detox 2 days ago. Denies recent IVDU, but admits to snorting what he believes was heroin earlier this morning. Reports upper extremity wounds have been around for a few weeks, likely secondary to xylazine. Initially started out as blisters that popped and expressed clear, watery discharge. Does reports some foul-smelling and yellowish discharge approximately 1 week ago. While in detox patient has been picking at in itching scabs. Patient staying with sister who noticed wounds on his arms and had him come to the ED for further evaluation. Denies any other acute symptoms. No fever, chills, nausea, vomiting, abdominal pain. Denies any significant upper extremity pain. No chest pain/pressure, palpitations. Shortness of breath. Denies any lesions elsewhere on his body. Reports injecting into his hands bilaterally. Also states he has been on methadone in the past, but that was some time ago and does not know the dosage. Initially contracted hep C in 2006 and was treated, though be contracted hep C more recently and has not yet sought outpatient treatment. In the ED pt was tachycardia of 103, and soft BP as low as 95/59. Vitals otherwise WNL. Labs were significant for H&H 11.7/37.0, lactic acid 2.1, AST 57, ALT 61, and C-reactive protein 1.32. No significant electrolyte abnormalities. No leukocytosis. ESR WNL. X-ray of left elbow found soft tissue swelling and subcutaneous edema with no acute osseous findings. Pt was treated with IVF, vanc, and Zosyn. Pt will be admitted to the hospital for treatment and further evaluation of upper left extremity cellulitis. hospital course: Patient was admitted for right upper extremity cellulitis Was given IV vancomycin with significant improvement. Seen by infectious disease and general surgery who recommended no surgical intervention at this time Transitioning to oral doxycycline Blood cultures were negative For opiate use disorder was given methadone, for hepatitis-C he should follow up outpatient for treatment, patient tested negative for HIV. He is feeling better will be discharged home. Time Attestation Discharge Coordination Time (in mins): 35 Quality: Safe Use of Opioids Does Pt have an Active Cancer Diagnosis on the Problem List?: No Quality: Stroke Does the patient have a stroke diagnosis?: No Physical Exam Vital Signs: Vital Signs: Last Vital Signs Temp 97.6 F 03/01/24 07:33 Pulse 61 03/01/24 07:33 Resp 16 03/01/24 07:33 BP 115/72 03/01/24 07:33 Pulse Ox 96 03/01/24 07:33 O2 Del Method Room Air 03/01/24 07:33 BMI result Body Mass Index 27.2 Const: General: cooperative and no acute distress Nutritional Appearance: well nourished Orientation/consciousness: patient oriented x3 Limitations: no limitations HEENT: Head: Yes normocephalic and Yes atraumatic Ears: hearing grossly normal bilaterally Neck: Neck: Yes normal visual inspection Resp: Effort & Inspection: normal respiratory effort, no audible wheezes, no cough and no respiratory distress Cardio: Jugular venous distension: no JVD GI: Inspection: Yes normal to inspection Skin: Other: Multiple areas of skin skin ulceration which are dry with minimal to no erythema surrounding. Wounds are mostly crusted with no evidence of underlying abscess. Findings are consistent with Xylazine wounds Neuro: General: patient oriented x3 Extrem: General: Yes no clubbing, cyanosis or edema DS: Data Data Completed and Pending Labs on day of discharge: Laboratory Results - last 24 hr 02/29/24 02/29/24 02/29/24 11:56 15:32 18:32 WBC 8.1 RBC 4.50 L Hgb 11.7 L Hct 37.0 L MCV 82.2 MCH 26.0 L MCHC 31.6 RDW 14.6 Plt Count 283 MPV 9.3 L Immature Gran % (Auto) 0.2 Neut % (Auto) 72.1 Lymph % (Auto) 21.9 Mcmullen % (Auto) 5.2 Eos % (Auto) 0.2 Baso % (Auto) 0.4 Lymph # (Auto) 1.8 Mcmullen # (Auto) 0.4 Eos # (Auto) 0.0 Baso # (Auto) 0.0 Abs Immat Gran (auto) 0.02 Absolute Neuts (auto) 5.8 Absolute Nucleated RBC 0.000 Nucleated RBC % (auto) 0.0 ESR 14 Sodium 137 Potassium 3.5 Chloride 105 Carbon Dioxide 22 Anion Gap 14 BUN 17 H Creatinine 0.79 Estim Creat Clear Calc 99.8 Estimated GFR > 60 Random Glucose 100 Lactic Acid 2.1 H* Lactic Acid F/U @ 2Hr 1.1 Calcium 8.9 Total Bilirubin 0.5 AST 57 H ALT 61 H Alkaline Phosphatase 108 C-Reactive Protein 1.32 H Total Protein 8.0 Albumin 4.0 HIV 1&2 Ab/P24 Ag 4thGn Nonreactive 03/01/24 05:40 WBC RBC Hgb Hct MCV MCH MCHC RDW Plt Count MPV Immature Gran % (Auto) Neut % (Auto) Lymph % (Auto) Mcmullen % (Auto) Eos % (Auto) Baso % (Auto) Lymph # (Auto) Mcmullen # (Auto) Eos # (Auto) Baso # (Auto) Abs Immat Gran (auto) Absolute Neuts (auto) Absolute Nucleated RBC Nucleated RBC % (auto) ESR Sodium Potassium Chloride Carbon Dioxide Anion Gap BUN Creatinine 0.62 Estim Creat Clear Calc 127.1 Estimated GFR > 60 Random Glucose Lactic Acid Lactic Acid F/U @ 2Hr Calcium Total Bilirubin AST ALT Alkaline Phosphatase C-Reactive Protein Total Protein Albumin HIV 1&2 Ab/P24 Ag 4thGn Discharge Plan Discharge Anticipated Discharge Date/Time: 03/01/24 09:50 Patient Disposition: Home, Self-Care Discharge Diagnosis: rue cellulitis Referrals: Physician,Unknown J [Primary Care Provider] - 1 Week Discharge Medications: New doxycycline hyclate 100 mg capsule 100 mg PO BID Qty: 10 0RF Diet: Advance to usual diet Activity on Discharge: As tolerated Stand Alone Forms: Patient Portal Discharge page Print Language: Occitan Care Plan Goals: recovery Health Concerns: ivda, cellulitis Plan of Treatment: 5 days doxy, no drug use Assessment: see above
--- NOTE | 2024-03-01 10:04 | MHC.RECOVRN ---
Met with pt in 352 after consult placed to Addiction Medicine for substance use. Pt had presented to the ED reporting xylazine wounds don't look great. Upon evaluation, pt admitted for treatment of bilateral upper extremity cellulitis. Pt sitting in bed, awake, alert, easily engages in conversation, appears slightly diaphoretic, otherwise comfortable. Pt reports feeling okay. Pt reports having been at [facility] for 6 days, discharged on 02/26. Prior to [facility], pt reports using 1-2 bundles heroin daily, IV. Pt reports for a couple days prior to [facility] admission using 3 bags every 6 hours in an attempt to reduce use. Pt reports using 1 bag heroin, [place], on . Currently, pt reporting withdrawal symptoms including upset stomach, anxiety, feeling hot/cold. Discussed recovery resources and treatment options, pt would like to initiate methadone. Pt reports he has been on methadone in the past with success. Pt would like to be connected to [facility] upon discharge. Pt denies questions or concerns for t/w. Discussed with Mitra Moseley APRN.
--- NOTE | 2024-03-01 10:26 | MHC.RECOVRN ---
Pts referral sent to [facility].
--- NOTE | 2024-03-01 14:08 | MHC.CM.PN ---
pt medically cleared for dc home self care, pt to call family/s.o. for transport
== END 2024-03-01 14:05 | disposition home or self-care (01) | DRG 383 ==
LOC: HO.ED 11:26 → HO.EDOVER 15:33 → HO.S3 20:42
PROVIDERS: Internal Medicine; Physician Assistant Medical; Admitting Provider Student in an Organized Health Care Education/Training Program; Emergency Provider Student in an Organized Health Care Education/Training Program; PCP Internal Medicine; Visit Provider Internal Medicine
DX: L03.114 Cellulitis of left upper limb (principal); B19.20 Unspecified viral hepatitis C without hepatic coma; L03.113 Cellulitis of right upper limb; F11.90 Opioid use, unspecified, uncomplicated
CPT/HCPCS: 36415; 73080; 80053; 82565; 83605; 85025; 85652; 86140; 87040; 87389; 99221; 99285; J1650; J2543; J3370; J7120

== ENCOUNTER → 2024-02-29 15:05 | Outpatient (BNV) | payer OTHER, SELFPAY | PROVIDERS: Admitting Provider Student in an Organized Health Care Education/Training Program; Emergency Provider Student in an Organized Health Care Education/Training Program; Visit Provider Student in an Organized Health Care Education/Training Program | DX: L03.119 Cellulitis of unspecified part of limb (principal) | CPT/HCPCS: 99223; 99239 ==

== ENCOUNTER → 2024-02-29 15:05 | Outpatient (BNV) | payer OTHER, SELFPAY | PROVIDERS: Admitting Provider Student in an Organized Health Care Education/Training Program; Emergency Provider Student in an Organized Health Care Education/Training Program; Visit Provider Surgery | DX: L03.119 Cellulitis of unspecified part of limb (principal) | CPT/HCPCS: 99222 ==

== ENCOUNTER → 2024-02-29 15:05 | Outpatient (BNV) | payer OTHER, SELFPAY | PROVIDERS: Admitting Provider Student in an Organized Health Care Education/Training Program; Emergency Provider Student in an Organized Health Care Education/Training Program; Visit Provider Internal Medicine | DX: L03.119 Cellulitis of unspecified part of limb (principal) | CPT/HCPCS: 99222 ==